=== PATIENT | male | born 1975 | race Hispanic/Latino ===

== ENCOUNTER → 2018-04-01 | Outpatient (CLI) | payer BC ==
--- NOTE | 2018-04-01 14:39 | Diagnostic Imaging Report ---
PROCEDURE:US RETROPERITONEAL ( KIDNEY ). COMPARISON:None. INDICATIONS:Family Hx RCC TECHNIQUE: Yates-scale and color sonographic images of the bilateral kidneys and bladder where obtained in transverse and longitudinal planes. FINDINGS: RIGHT KIDNEY: Measures 10.5 cm in length. Cysts: None Solid masses: None Stones: None Hydronephrosis: None Echogenicity: None LEFT KIDNEY: Measures 11.1 cm in length. Cysts: None Solid masses: None Stones: None Hydronephrosis: None Echogenicity: None Bladder: Well-distended and is normal. Ureteral jets are visible. Prostate: Measures 3.4 x 2.5 x 4.7 cm. Normal echotexture. Survey images of the liver demonstrate increased echotexture suggestive of steatosis. No focal mass. CONCLUSION: 1. Sonographically normal kidneys and bladder. 2. Increased hepatic echotexture suggestive of hepatocellular dysfunction, most commonly steatosis. Dictated by: Clau Montilla M.D. on 04/01/2018 at 14:41 Electronically approved by: Clau Montilla M.D. on 04/01/2018 at 14:41
== END ==
LOC: US 12:39
PROVIDERS: ATTEND Family Medicine
DX: Z80.51 Family history of malignant neoplasm of kidney (principal)
CPT/HCPCS: 76770

== ENCOUNTER → 2018-04-02 | Day surgery (SDC) | payer BC ==
[~2018-04-02] MED LIST: FENTANYL CITRATE/PF 100MCG/2 ML INJ ONE; HYOSCYAMINE SULFATE 0.5 MG/ML AMP ONE; LIDOCAINE HCL 2% LOCAL INJ 5 ML SDV VIAL INJ ONE; MIDAZOLAM HCL 2 MG/2 ML VIAL ONE; PROPOFOL IV EMULSION 10 MG/ML 50 ML VIAL ONE
--- OUTSIDE RECORDS SUMMARY | 2018-04-02 11:39 | XMS REPORT ---
Author Author [facility] Address Unknown Phone Unavailable Care Team Providers Care Diesel Engineer Name Role Phone ROSA OVALLE Unavailable Unavailable Problems This patient has no known problems. Allergies, Adverse Reactions, Alerts This patient has no known allergies or adverse reactions. Medications This patient has no known medications. Results Test Description Test Time Test Comments Text Results Atomic Results Result Comments US RENAL RETROPERITONEAL COMP [place] [address] Patient Name: SHELBY FITZPATRICK MR #: [id number] : 1975 Age/Sex: 42/M Req #: [id number] Adm Physician: Ordered by: ROSA OVALLE DO Report #: [id number] Location: Room/Bed: Procedure: [id number] US/US RENAL RETROPERITONEAL COMP Exam Date: 04/01/18 Exam Time: 1345 REPORT STATUS: Signed PROCEDURE : US RETROPERITONEAL ( KIDNEY ). COMPARISON: None. INDICATIONS: Family Hx RCC TECHNIQUE: Yates-scale and color sonographic images of the bilateral kidneys and bladder where obtained in transverse and longitudinal planes. FINDINGS: RIGHT KIDNEY: Measures 10.5 cm in length. Cysts: None Solid masses: None Stones: None Hydronephrosis: None Echogenicity: None LEFT KIDNEY: Measures 11.1 cm in length. Cysts: None Solid masses: None Stones: None Hydronephrosis: None Echogenicity: None Bladder: Well-distended and is normal. Ureteral jets are visible. Prostate: Measures 3.4 x 2.5 x 4.7 cm. Normal echotexture. Survey images of the liver demonstrate increased echotexture suggestive of steatosis. No focal mass. CONCLUSION: 1. Sonographically normal kidneys and bladder. 2. Increased hepatic echotexture suggestive of hepatocellular dysfunction, most commonly steatosis. Dictated by: Bradley Montilla M.D. on 04/01/2018 at 14:41 Electronically approved by: Bradley Montilla M.D. on 04/01/2018 at 14:41 Dictated By: BRADLEY MONTILLA MD [id number] COPY TO: ROSA OVALLE DO
--- NOTE | 2018-04-02 15:13 | Operative Report ---
DATE OF PROCEDURE: April 02, 2018 REFERRING PHYSICIAN: Dr. Saravanan Ovalle PROCEDURE PERFORMED: Colonoscopy and polypectomy with biopsies. INDICATIONS FOR COLONOSCOPY: Rectal bleeding, diarrhea. MEDICATION: Patient was done under MAC. Please see anesthesiologist's note. PROCEDURE: With the patient in the left lateral decubitus position, the flexible fiberoptic Olympus colonoscope was inserted into the rectum with ease and advanced all the way to the cecum. Mucosa overlying the cecum appeared to be within normal limits. The ileocecal valve was intubated, and the scope was advanced into the terminal ileum. Biopsies were obtained. The scope was then withdrawn back into the colon. It was then withdrawn slowly. Mucosa overlying the ascending and transverse grossly appeared to be within normal limits. Mild inflammatory changes were noted in the left colon. Multiple random biopsies were obtained. Two polyps were hot biopsied from the sigmoid colon. The scope was then retroflexed into the distal rectum, and small internal hemorrhoids were noted, none of which was actively bleeding. Scope was then straightened out. It was subsequently withdrawn after securing an adequate stool specimen that was sent for the appropriate stool studies. Patient tolerated the procedure well. IMPRESSION 1. Mild, patchy, left-sided colitis. 2. Sigmoid colon polyps times 2, hot biopsied. 3. Internal hemorrhoids, none actively bleeding. PLAN: Follow up histology. Follow up stool studies. Start Bentyl 10 mg 1 p.o. t.i.d. and VSL #3 DS 1 p.o. daily. Patient might benefit from a followup colonoscopy in 3 to 5 years. Job#: [id number] cc:ROSA OVALLE DO
[2018-04-02 15:23] LABS: WBC,FECAL (FECAL LACTOFERRIN) NEGATIVE (NEGATIVE)
[2018-04-03 13:48] LABS: C DIFFICILE TOXIN A&B AMP PROB NEGATIVE (NEGATIVE)
== END | disposition home or self-care (01) ==
LOC: ENDO 11:38
PROVIDERS: ATTEND Internal Medicine Gastroenterology
DX: K51.50 Left sided colitis without complications (principal); K63.5 Polyp of colon; K64.8 Other hemorrhoids; F17.210 Nicotine dependence, cigarettes, uncomplicated; Z01.810 Encounter for preprocedural cardiovascular examination; Z68.31 Body mass index [BMI] 31.0-31.9, adult
CPT/HCPCS: 45384; 83630; 83993; 87045; 87177; 87328; 87493; 93005; J1980; J2001; J2250; 45380